=== PATIENT | female | born 1950 | race Caucasian/White ===

== ENCOUNTER 2019-06-27 08:34 | Outpatient (CLI) | payer MEDICARE, MEDICAID, SELFPAY ==
[2019-06-27 09:27] LABS: Albumin Level 3.9 g/dL (3.5-5.2); Anion Gap 17.7 (5-19); Blood Urea Nitrogen 28 mg/dL (8-23); Calcium 10.2 mg/dL (8.5-10.5); Carbon Dioxide 24 mmol/L (22-29); Chloride 102 mmol/L (98-107); Glucose 325 mg/dL (65-115); Phosphorus 3.5 mg/dL (2.5-4.5); Potassium 4.7 mmol/L (3.5-5.1); Sodium 139 mmol/L (136-145)
== END 2019-06-27 08:35 | disposition home or self-care (01) ==
LOC: LAB 08:42
PROVIDERS: Family Provider Family Medicine; PCP Family Medicine; Visit Provider Internal Medicine Nephrology
DX: N18.3 Chronic kidney disease, stage 3 (moderate) (principal)
CPT/HCPCS: 36415; 80069

== ENCOUNTER 2019-07-14 08:19 | Outpatient (CLI) | payer MEDICARE, MEDICAID, SELFPAY ==
--- NOTE | 2019-07-14 08:30 | US_ITS ---
WS: [id number] RENAL ULTRASOUND HISTORY: CHRONIC KIDNEY DZ-STAGE 3/HYPERURICEMIA COMPARISON: 12/20/2015 TECHNIQUE: 2-D and color Doppler imaging of the kidney submitted. Right kidney: 11.4 cm x 4.6 cm x 5.1 cm. Normal size and echogenicity. Minimal thinning of the cortex. No hydronephrosis or mass. Left kidney: 10.1 cm x 5.1 cm x 6.2 cm. Mild cortical thinning and increased renal sinus fat. There is a very tiny cortical cyst in the infer ior kidney. Aorta: Normal. Urinary Bladder: Normal distention. US/US renal BI* [id number] IMPRESSION: 1. Very mild cortical atrophy. No obstruction. 2. No solid mass.
== END 2019-07-14 08:20 | disposition home or self-care (01) ==
LOC: US 08:21
PROVIDERS: PCP Family Medicine; Visit Provider Internal Medicine Nephrology
DX: E79.0 Hyperuricemia without signs of inflammatory arthritis and tophaceous disease (principal); N18.3 Chronic kidney disease, stage 3 (moderate); N26.1 Atrophy of kidney (terminal)
CPT/HCPCS: 76770

== ENCOUNTER 2019-08-04 13:19 | Outpatient (CLI) | payer MEDICARE, MEDICAID, SELFPAY ==
--- NOTE | 2019-08-04 15:15 | XR_ITS ---
WS: [id number] Bone mineral density performed on a [employer], 08/04/2019 Clinical data: DEXA Findings: The first 4 lumbar vertebral bodies demonstrated the bone mineral density of 1.108 g/cm2 for a young adult T score of -0.6. Measurement of the left hip reveals a bone mineral density of 0.989 g/cm2 with a young adult T score of -0.2. Measurement of the right hip reveals the bone mineral density of 0.937 g/cm2 for young adult T score of -0.6. XR/XR DEXA axial skeleton* [id number] Impression: Normal bone mineral density of the lumbar spine and both hips.
== END 2019-08-04 13:20 | disposition home or self-care (01) ==
LOC: RADWPI 13:22
PROVIDERS: PCP Family Medicine; Visit Provider Family Medicine
DX: Z78.0 Asymptomatic menopausal state (principal)
CPT/HCPCS: 77080

== ENCOUNTER → 2019-09-15 14:11 | Outpatient (BNVA) | payer MEDICARE, MEDICAID, SELFPAY | PROVIDERS: PCP Family Medicine; Visit Provider Family Medicine | DX: E11.9 Type 2 diabetes mellitus without complications (principal); I10 Essential (primary) hypertension; E11.21 Type 2 diabetes mellitus with diabetic nephropathy; Z79.4 Long term (current) use of insulin; E55.9 Vitamin D deficiency, unspecified; G25.0 Essential tremor; M79.7 Fibromyalgia | CPT/HCPCS: 80053; 80061; 82044; 82306; 83036; 85025 ==

== ENCOUNTER → 2019-12-29 11:13 | Outpatient (BNVA) | payer MEDICARE, MEDICAID, SELFPAY | PROVIDERS: PCP Family Medicine; Visit Provider Family Medicine | DX: E11.22 Type 2 diabetes mellitus with diabetic chronic kidney disease (principal); N18.3 Chronic kidney disease, stage 3 (moderate) | CPT/HCPCS: 80069; 82043; 82306; 82310; 83970; 84550; 85025 ==

== ENCOUNTER → 2020-02-02 08:48 | Outpatient (BNVA) | payer MEDICARE, MEDICAID, SELFPAY | PROVIDERS: PCP Family Medicine; Visit Provider Family Medicine | DX: E11.21 Type 2 diabetes mellitus with diabetic nephropathy (principal); Z79.4 Long term (current) use of insulin | CPT/HCPCS: 80053; 83036 ==

== ENCOUNTER → 2020-02-20 08:45 | Outpatient (BNVA) | payer MEDICARE, MEDICAID, SELFPAY | PROVIDERS: PCP Family Medicine; Visit Provider Family Medicine | DX: E87.5 Hyperkalemia (principal) | CPT/HCPCS: 80048 ==

== ENCOUNTER → 2020-06-21 09:50 | Outpatient (BNVA) | payer MEDICARE, MEDICAID, SELFPAY | PROVIDERS: PCP Family Medicine; Visit Provider Family Medicine | DX: E11.21 Type 2 diabetes mellitus with diabetic nephropathy (principal); Z79.4 Long term (current) use of insulin; E78.5 Hyperlipidemia, unspecified | CPT/HCPCS: 80053; 80061; 83036; 83721 ==

== ENCOUNTER → 2020-08-01 13:10 | Outpatient (BNVA) | payer MEDICARE, MEDICAID, SELFPAY | PROVIDERS: PCP Family Medicine; Visit Provider Family Medicine | DX: E11.21 Type 2 diabetes mellitus with diabetic nephropathy (principal); Z79.4 Long term (current) use of insulin; J30.2 Other seasonal allergic rhinitis; E78.1 Pure hyperglyceridemia; E87.5 Hyperkalemia; E11.22 Type 2 diabetes mellitus with diabetic chronic kidney disease; Z68.35 Body mass index [BMI] 35.0-35.9, adult | CPT/HCPCS: 80053 ==

== ENCOUNTER → 2020-09-25 08:48 | Outpatient (BNVA) | payer MEDICARE, MEDICAID, SELFPAY | PROVIDERS: PCP Family Medicine; Visit Provider Family Medicine | DX: E11.21 Type 2 diabetes mellitus with diabetic nephropathy (principal); M79.7 Fibromyalgia; Z68.36 Body mass index [BMI] 36.0-36.9, adult; F17.211 Nicotine dependence, cigarettes, in remission; Z79.4 Long term (current) use of insulin | CPT/HCPCS: 80053; 82043; 83036; 85025 ==

== ENCOUNTER → 2020-09-26 10:16 | Outpatient (BNVA) | payer MEDICARE, MEDICAID, SELFPAY | PROVIDERS: PCP Family Medicine; Visit Provider Family Medicine | DX: E11.21 Type 2 diabetes mellitus with diabetic nephropathy (principal); Z79.4 Long term (current) use of insulin; M79.7 Fibromyalgia; D64.9 Anemia, unspecified; Z68.36 Body mass index [BMI] 36.0-36.9, adult | CPT/HCPCS: 82728; 83550 ==

== ENCOUNTER → 2020-12-25 09:34 | Outpatient (BNVA) | payer MEDICARE, MEDICAID, SELFPAY | PROVIDERS: PCP Family Medicine; Visit Provider Family Medicine | DX: E11.21 Type 2 diabetes mellitus with diabetic nephropathy (principal); Z79.4 Long term (current) use of insulin; E78.5 Hyperlipidemia, unspecified; M79.7 Fibromyalgia; E11.22 Type 2 diabetes mellitus with diabetic chronic kidney disease; M19.041 Primary osteoarthritis, right hand; M19.042 Primary osteoarthritis, left hand; N18.30 Chronic kidney disease, stage 3 unspecified | CPT/HCPCS: 80053; 83036 ==

== ENCOUNTER 2021-01-25 07:46 | Outpatient (CLI) | payer MEDICARE, MEDICAID, SELFPAY ==
--- NOTE | 2021-01-25 08:45 | USCV_ITS ---
April Huffman Age: 70 Gender: F : 1950 Exam Date: 01/25/2021 08:10 Ordering Phys: Clarissa Lopez MD ([email or web address]) Technologist: Elyssa Okeefe Exam Location: [facility] [place] Indication: MR BP: 137 / 70 HR: 64 Rhythm: Sinus Technical Quality: Adequate MEASUREMENTS (Male / Female) Normal Values 2D ECHO LV Diastolic Diameter PLAX 5.2 cm 4.2 - 5.9 / 3.9 - 5.3 cm LV Systolic Diameter PLAX 2.6 cm LV Chamber Size 3.2 cm IVS Diastolic Thickness 1.2 cm 0.6 - 1.0 / 0.6 - 0.9 cm IVS Systolic Thickness 1.5 cm LVPW Diastolic Thickness 1.4 cm 0.6 - 1.0 / 0.6 - 0.9 cm LVPW Systolic Thickness 1.6 cm RV Chamber Size 3.1 cm LVOT Diameter 2.0 cm LV Ejection Fraction 2D Teich 81.0 % LV Ejection Fraction MOD 2C 74.9 % LV Ejection Fraction 2C AL 76.7 % LA Diameter 4.3 cm LA Width 3.5 cm LA Height 4.3 cm RA Width 2.8 cm RA Height 4.5 cm Aorta at Sinotubular Diameter 2.5 cm M-MODE LV Diastolic Diameter MM 5.5 cm 4.2 - 5.9 / 3.9 - 5.3 cm LV Systolic Diameter MM 3.4 cm LV Ejection Fraction MM Teich 68.2 % IVS Diastolic Thickness MM 1.1 cm 0.6 - 1.0 / 0.6 - 0.9 cm IVS Systolic Thickness MM 1.5 cm LVPW Diastolic Thickness MM 1.5 cm 0.6 - 1.0 / 0.6 - 0.9 cm LVPW Systolic Thickness MM 2.3 cm Aortic Annulus Diameter 2.9 cm LA Ao Ratio MM 1.9 MV E Point Septal Separation 0.8 cm DOPPLER LVOT Peak Velocity 108.0 cm/s MV Peak Velocity 94.0 cm/s MV Area PHT 2.3 cm squared Mitral E to A Ratio 0.8 MV E' Velocity 48.6 cm/s Mitral E to MV E' Ratio 12.8 Mitral E to LV E' Lateral Ratio 13.0 Mitral E to LV E' Septal Ratio 12.6 TR Peak Velocity 155.1 cm/s TR Peak Gradient 9.6 mmHg TR Mean Velocity 90.4 cm/s TR Mean Gradient 4.3 mmHg TR Velocity Time Integral 33.6 cm TV Peak E Velocity 60.0 cm/s Right Atrial Pressure 3.0 mmHg Pulmonary Artery Systolic Pressu 12.6 mmHg PV Peak Velocity 108.0 cm/s FINDINGS Left Ventricle Normal left ventricular size and systolic function, EF 61 %. Mild left ventricular hypertrophy. No regional wall motion abnormalities. Grade I/IV diastolic dysfunction (abnormal relaxation filling pattern), normal to mildly elevated filling pressures. Right Ventricle The right ventricle is normal in size and function. Right Atrium The right atrium is normal in size. Left Atrium Mildly increased left atrial size. Mitral Valve Trace mitral valve regurgitation. Aortic Valve Thickened aortic valve. Tricuspid Valve Trace tricuspid valve regurgitation. Pulmonic Valve No gross abnormalities noted Pericardium Normal pericardium without effusion. Aorta Normal ascending aorta dimension. CONCLUSIONS Normal left ventricular size and systolic function, EF 61 %. Mild left ventricular hypertrophy. No regional wall motion abnormalities. Grade I/IV diastolic dysfunction (abnormal relaxation filling pattern), normal to mildly elevated filling pressures. Mildly increased left atrial size. Thickened aortic valve. Trace of mitral and tricuspid regurgitation There is no pericardial effusion. There are no intracardiac masses. No previous study is available for comparison. Compared to the study from 04/18/2015, there is significant improvement in the mitral regurgitation Dr Clarissa Lopez MD [facility] (Electronically Signed) Final Date: 25 January 2021 14:47 S
== END 2021-01-25 07:47 | disposition home or self-care (01) ==
PROVIDERS: PCP Family Medicine; Visit Provider Internal Medicine Cardiovascular Disease
DX: I08.3 Combined rheumatic disorders of mitral, aortic and tricuspid valves (principal)
CPT/HCPCS: 93306

== ENCOUNTER → 2021-03-25 14:08 | Outpatient (BNVA) | payer MEDICARE, MEDICAID, SELFPAY | PROVIDERS: PCP Family Medicine; Visit Provider Family Medicine | DX: E11.21 Type 2 diabetes mellitus with diabetic nephropathy (principal); Z79.4 Long term (current) use of insulin | CPT/HCPCS: 80053; 83036 ==

== ENCOUNTER → 2021-06-24 13:14 | Outpatient (BNVA) | payer MEDICARE, MEDICAID, SELFPAY | PROVIDERS: PCP Family Medicine; Visit Provider Family Medicine | DX: I10 Essential (primary) hypertension (principal); E78.5 Hyperlipidemia, unspecified; E11.21 Type 2 diabetes mellitus with diabetic nephropathy; Z79.4 Long term (current) use of insulin | CPT/HCPCS: 80053; 80061; 83036; 83721; 85025 ==

== ENCOUNTER → 2021-07-24 08:06 | Outpatient (BNVA) | payer MEDICARE, MEDICAID, SELFPAY | PROVIDERS: PCP Family Medicine; Visit Provider Internal Medicine Nephrology | DX: E11.22 Type 2 diabetes mellitus with diabetic chronic kidney disease (principal); N18.30 Chronic kidney disease, stage 3 unspecified | CPT/HCPCS: 80069; 82043; 82310; 83970; 85025 ==

== ENCOUNTER → 2021-10-03 10:34 | Outpatient (BNVA) | payer MEDICARE, MEDICAID, SELFPAY | PROVIDERS: PCP Family Medicine; Visit Provider Family Medicine | DX: E78.5 Hyperlipidemia, unspecified (principal); I10 Essential (primary) hypertension; E11.21 Type 2 diabetes mellitus with diabetic nephropathy; Z79.4 Long term (current) use of insulin; M79.641 Pain in right hand; M79.642 Pain in left hand; E11.22 Type 2 diabetes mellitus with diabetic chronic kidney disease; K21.9 Gastro-esophageal reflux disease without esophagitis; L91.8 Other hypertrophic disorders of the skin | CPT/HCPCS: 80053; 83036; 85025; 85651; 86038; 86140; 86200; 86431 ==

== ENCOUNTER → 2022-01-24 13:35 | Outpatient (BNVA) | payer MEDICARE, MEDICAID, SELFPAY | PROVIDERS: PCP Family Medicine; Visit Provider Family Medicine | DX: E11.21 Type 2 diabetes mellitus with diabetic nephropathy (principal); Z79.4 Long term (current) use of insulin; M79.7 Fibromyalgia | CPT/HCPCS: 80048; 83036 ==

== ENCOUNTER → 2022-02-25 08:29 | Outpatient (BNVA) | payer MEDICARE, MEDICAID, SELFPAY | PROVIDERS: PCP Family Medicine; Referring Provider Family Medicine; Visit Provider Internal Medicine | DX: E11.22 Type 2 diabetes mellitus with diabetic chronic kidney disease (principal); E11.21 Type 2 diabetes mellitus with diabetic nephropathy; E78.1 Pure hyperglyceridemia; Z79.4 Long term (current) use of insulin; Z87.891 Personal history of nicotine dependence; Z79.84 Long term (current) use of oral hypoglycemic drugs | CPT/HCPCS: 99204 ==

== ENCOUNTER → 2022-04-28 09:44 | Outpatient (BNVA) | payer MEDICARE, MEDICAID, SELFPAY | PROVIDERS: PCP Family Medicine; Visit Provider Family Medicine | DX: E11.21 Type 2 diabetes mellitus with diabetic nephropathy (principal); Z79.4 Long term (current) use of insulin; M19.041 Primary osteoarthritis, right hand; M19.042 Primary osteoarthritis, left hand; E11.22 Type 2 diabetes mellitus with diabetic chronic kidney disease; E11.9 Type 2 diabetes mellitus without complications; E78.1 Pure hyperglyceridemia | CPT/HCPCS: 80053; 80061; 83036; 83721 ==

== ENCOUNTER → 2022-05-29 09:56 | Outpatient (BNVA) | payer MEDICARE, MEDICAID, SELFPAY | PROVIDERS: PCP Family Medicine; Visit Provider Internal Medicine | DX: E11.21 Type 2 diabetes mellitus with diabetic nephropathy (principal); E78.1 Pure hyperglyceridemia; Z79.4 Long term (current) use of insulin | CPT/HCPCS: 99214 ==

== ENCOUNTER → 2022-06-24 13:44 | Outpatient (BNVA) | payer MEDICARE, MEDICAID, SELFPAY | PROVIDERS: PCP Family Medicine; Visit Provider Registered Nurse | DX: N18.32 Chronic kidney disease, stage 3b (principal) | CPT/HCPCS: 80069; 82043; 82310; 83970; 85025 ==

== ENCOUNTER → 2022-08-25 09:12 | Outpatient (BNVA) | payer MEDICARE, MEDICAID, SELFPAY | PROVIDERS: PCP Family Medicine; Visit Provider Family Medicine | DX: E78.1 Pure hyperglyceridemia (principal); I12.9 Hypertensive chronic kidney disease with stage 1 through stage 4 chronic kidney disease, or unspecified chronic kidney disease; E11.22 Type 2 diabetes mellitus with diabetic chronic kidney disease; N18.30 Chronic kidney disease, stage 3 unspecified; Z79.4 Long term (current) use of insulin | CPT/HCPCS: 80053; 80061; 83036; 83721 ==

== ENCOUNTER → 2022-09-04 07:49 | Outpatient (BNVA) | payer MEDICARE, MEDICAID, SELFPAY | PROVIDERS: PCP Family Medicine; Visit Provider Internal Medicine | DX: E11.21 Type 2 diabetes mellitus with diabetic nephropathy (principal); E78.1 Pure hyperglyceridemia; Z79.4 Long term (current) use of insulin | CPT/HCPCS: 99214 ==

== ENCOUNTER → 2022-10-28 08:39 | Outpatient (BNVA) | payer MEDICARE, MEDICAID, SELFPAY | PROVIDERS: PCP Family Medicine; Visit Provider Nurse Practitioner Family | DX: I12.9 Hypertensive chronic kidney disease with stage 1 through stage 4 chronic kidney disease, or unspecified chronic kidney disease (principal); E11.22 Type 2 diabetes mellitus with diabetic chronic kidney disease; N18.30 Chronic kidney disease, stage 3 unspecified; Z87.891 Personal history of nicotine dependence; Z79.4 Long term (current) use of insulin | CPT/HCPCS: 99213 ==

== ENCOUNTER → 2022-11-25 13:15 | Outpatient (BNVA) | payer MEDICARE, MEDICAID, SELFPAY | PROVIDERS: PCP Family Medicine; Visit Provider Family Medicine | DX: Z01.419 Encounter for gynecological examination (general) (routine) without abnormal findings (principal); E78.1 Pure hyperglyceridemia; E78.5 Hyperlipidemia, unspecified; M79.7 Fibromyalgia; R10.2 Pelvic and perineal pain; Z12.31 Encounter for screening mammogram for malignant neoplasm of breast; M10.9 Gout, unspecified | CPT/HCPCS: 87070; 87205 ==

== ENCOUNTER 2022-12-12 09:25 | Outpatient (CLI) | payer MEDICARE, MEDICAID, SELFPAY ==
--- NOTE | 2022-12-12 09:47 | MM_ITS ---
WS: [id number] BILATERAL SCREENING DIGITAL TOMOSYNTHESIS MAMMOGRAM WITH CAD HISTORY: screening mammogram COMPARISON: 06/25/2018 and 06/17/2016 Bilateral CC and MLO views with tomosynthesis and synthetic mammography submitted. Computer aided det ection analyzed. Breast composition: There are scattered areas of fibroglandular density. No suspicious masses, microc alcifications or architectural distortion. MM/[place] [id number] IMPRESSION: BI-RADS: 1-Negative FOLLOW UP: 1 Year Follow-up
--- NOTE | 2022-12-12 10:30 | US_ITS ---
WS: [id number] US transvaginal [id number] HISTORY: pelvic pain COMPARISON: None available. Status post hysterectomy. No midline mass identified. No uterine soft tissue. No mass at the vaginal cuff. Normal peristalsing loops of GI tract are noted within the pelvis. Neither ovary is identified. No adnexal mass. No free fluid. US/US transvaginal [id number] IMPRESSION: Status post hysterectomy. No pelvic masses or fluid.
== END 2022-12-12 09:26 | disposition home or self-care (01) ==
LOC: RAD 09:27 → MOBLMAM 10:06
PROVIDERS: PCP Family Medicine; Visit Provider Family Medicine
DX: Z12.31 Encounter for screening mammogram for malignant neoplasm of breast (principal); R10.2 Pelvic and perineal pain; Z90.710 Acquired absence of both cervix and uterus
CPT/HCPCS: 76830; 77063; 77067; 87070; 87205

== ENCOUNTER 2023-03-31 13:24 | Outpatient (CLI) | payer MEDICARE, MEDICAID, SELFPAY ==
--- NOTE | 2023-03-31 13:34 | XR_ITS ---
WS: [id number] Exam: XR shoulder LT min 2V* [id number] Date/Time of Exam: 03/31/2023 1:48 PM Reason For Exam: bilateral shoulder pain No fracture or dislocation. Degenerative change of the glenohumeral joint. Subacromial bone spurring. Osteophyte formation along the medial aspect of the humeral head. Normal soft tissues. IMPRESSION: 1. No fracture or dislocation. 2. Degenerative changes.
--- NOTE | 2023-03-31 13:34 | XR_ITS ---
WS: [id number] Exam: XR shoulder RT min 2V* [id number] Date/Time of Exam: 03/31/2023 1:48 PM Reason For Exam: bilateral shoulder pain No acute fracture or dislocation. Moderate DJD of the glenohumeral joint. Osteophyte formation along the medial aspect of the humeral head. Normal soft tissues. IMPRESSION: 1. Moderate degenerative change. No fracture or other significant finding.
== END 2023-03-31 13:25 | disposition home or self-care (01) ==
PROVIDERS: PCP Family Medicine; Visit Provider Family Medicine
DX: G89.29 Other chronic pain (principal); M25.511 Pain in right shoulder; M25.512 Pain in left shoulder; E11.9 Type 2 diabetes mellitus without complications; E78.1 Pure hyperglyceridemia; Z79.4 Long term (current) use of insulin
CPT/HCPCS: 73030; 80053; 80061; 82043; 83036; 83721

== ENCOUNTER → 2023-07-07 08:20 | Outpatient (BNVA) | payer MEDICARE, MEDICAID, SELFPAY | PROVIDERS: PCP Family Medicine; Visit Provider Family Medicine | DX: E11.21 Type 2 diabetes mellitus with diabetic nephropathy (principal); Z79.4 Long term (current) use of insulin; Z13.6 Encounter for screening for cardiovascular disorders | CPT/HCPCS: 80053; 83036; 85025 ==

== ENCOUNTER → 2023-09-09 08:22 | Outpatient (BNVA) | payer MEDICARE, MEDICAID, SELFPAY | PROVIDERS: PCP Family Medicine; Visit Provider Family Medicine | DX: E11.22 Type 2 diabetes mellitus with diabetic chronic kidney disease (principal); N18.30 Chronic kidney disease, stage 3 unspecified | CPT/HCPCS: 80069; 82043; 82542; 85025 ==

== ENCOUNTER → 2023-10-06 11:13 | Outpatient (BNVA) | payer MEDICARE, MEDICAID, SELFPAY | PROVIDERS: PCP Family Medicine; Visit Provider Family Medicine | DX: E11.21 Type 2 diabetes mellitus with diabetic nephropathy (principal); Z79.4 Long term (current) use of insulin; Z13.6 Encounter for screening for cardiovascular disorders | CPT/HCPCS: 80053; 83036 ==

== ENCOUNTER → 2023-10-27 09:41 | Outpatient (BNVA) | payer MEDICARE, MEDICAID, SELFPAY | PROVIDERS: PCP Family Medicine Adult Medicine; Visit Provider Internal Medicine Cardiovascular Disease | DX: I12.9 Hypertensive chronic kidney disease with stage 1 through stage 4 chronic kidney disease, or unspecified chronic kidney disease (principal); E11.22 Type 2 diabetes mellitus with diabetic chronic kidney disease; N18.30 Chronic kidney disease, stage 3 unspecified; E11.21 Type 2 diabetes mellitus with diabetic nephropathy; E78.5 Hyperlipidemia, unspecified; Z79.4 Long term (current) use of insulin; Z87.891 Personal history of nicotine dependence | CPT/HCPCS: 99213 ==

== ENCOUNTER → 2024-07-22 09:02 | Outpatient (BNVA) | payer MEDICARE, MEDICAID, SELFPAY | PROVIDERS: PCP Family Medicine; Visit Provider Family Medicine | DX: E11.21 Type 2 diabetes mellitus with diabetic nephropathy (principal); Z79.4 Long term (current) use of insulin | CPT/HCPCS: 80053; 80061; 82043; 83036; 83721; 85025 ==

== ENCOUNTER 2024-08-22 09:17 | Outpatient (CLI) | payer MEDICARE, MEDICAID, SELFPAY ==
--- NOTE | 2024-08-22 09:36 | XR_ITS ---
WS: [id number] Exam: XR knee RT 3V* [id number] Date/Time of Exam: 08/22/2024 9:40 AM Reason For Exam: acute right medial knee pain Comparison 12/01/2010 There is mild tricompartmental degenerative change. No fracture. Small effusion in the suprapatellar bursa. Normal soft tissues. XR/XR knee RT 3V* [id number] IMPRESSION: 1. Mild tricompartmental DJD and joint effusion. Kellgren-Gilson grade 1.
== END 2024-08-22 09:18 | disposition home or self-care (01) ==
LOC: RAD 09:29
PROVIDERS: PCP Family Medicine; Visit Provider Family Medicine
DX: M17.11 Unilateral primary osteoarthritis, right knee (principal); M25.461 Effusion, right knee
CPT/HCPCS: 73562

== ENCOUNTER → 2024-09-22 09:12 | Outpatient (BNVA) | payer MEDICARE, MEDICAID, SELFPAY | PROVIDERS: PCP Family Medicine; Visit Provider Family Medicine | DX: N18.31 Chronic kidney disease, stage 3a (principal); E55.9 Vitamin D deficiency, unspecified | CPT/HCPCS: 80069; 82310; 82570; 82652; 83970; 84156; 85025 ==

== ENCOUNTER → 2024-10-17 08:44 | Outpatient (BNVA) | payer MEDICARE, MEDICAID, SELFPAY | PROVIDERS: PCP Family Medicine; Visit Provider Family Medicine | DX: E11.21 Type 2 diabetes mellitus with diabetic nephropathy (principal); Z79.4 Long term (current) use of insulin; N18.31 Chronic kidney disease, stage 3a | CPT/HCPCS: 80053; 82570; 83036; 84156 ==

== ENCOUNTER → 2025-01-19 10:10 | Outpatient (BNVA) | payer MEDICARE, MEDICAID, SELFPAY | PROVIDERS: PCP Family Medicine; Visit Provider Family Medicine | DX: E11.21 Type 2 diabetes mellitus with diabetic nephropathy (principal); Z79.4 Long term (current) use of insulin | CPT/HCPCS: 80048; 83036 ==

== ENCOUNTER → 2025-01-27 10:46 | Outpatient (BNVA) | payer MEDICARE, MEDICAID, SELFPAY | PROVIDERS: PCP Family Medicine; Visit Provider Orthopaedic Surgery | DX: M19.011 Primary osteoarthritis, right shoulder (principal); M19.012 Primary osteoarthritis, left shoulder; M25.511 Pain in right shoulder; M25.512 Pain in left shoulder | CPT/HCPCS: 20610; 73030; 99204; J3301; J3490; J9999 ==

== ENCOUNTER → 2025-02-07 12:33 | Outpatient (BNVA) | payer MEDICARE, MEDICAID, SELFPAY | PROVIDERS: PCP Family Medicine; Visit Provider Orthopaedic Surgery | DX: M25.511 Pain in right shoulder (principal); M19.011 Primary osteoarthritis, right shoulder; M19.012 Primary osteoarthritis, left shoulder | CPT/HCPCS: 20610; 99213; J3301; J3490; J9999 ==

== ENCOUNTER → 2025-02-23 09:25 | Outpatient (BNVA) | payer MEDICARE, MEDICAID, SELFPAY | PROVIDERS: PCP Family Medicine; Visit Provider Family Medicine | DX: Z11.59 Encounter for screening for other viral diseases (principal); Z11.4 Encounter for screening for human immunodeficiency virus [HIV] | CPT/HCPCS: 86803; 87389 ==

== ENCOUNTER → 2025-04-20 09:40 | Outpatient (BNVA) | payer MEDICARE, MEDICAID, SELFPAY | PROVIDERS: PCP Family Medicine; Visit Provider Family Medicine | DX: E11.21 Type 2 diabetes mellitus with diabetic nephropathy (principal); Z79.4 Long term (current) use of insulin; Z13.6 Encounter for screening for cardiovascular disorders | CPT/HCPCS: 80053; 83036 ==

== ENCOUNTER 2025-04-27 19:40 | Emergency (ER) | payer MEDICARE, MEDICAID, SELFPAY ==
[2025-04-27 19:38] VITALS: BP 159/80; PULSE 51; RESP 20; TEMP 36.6; O2SAT 97
--- NOTE | 2025-04-27 19:44 | XRR_ITS ---
PROCEDURE INFORMATION: Exam: XR Right Shoulder Exam date and time: 04/27/2025 7:44 PM Age: 74 years old Clinical indication: Injury or trauma; Fall; Blunt trauma (contusions or hematomas); Shoulder; Right; Additional info: Fall, injury TECHNIQUE: Imaging protocol: Radiologic exam of the right shoulder. Views: 2 or more views. COMPARISON: CR XR shoulder RT min 2V* [id number] 01/27/2025 10:48 AM FINDINGS: Bones/joints: Demineralization consistent with the patient's age. Transverse fracture surgical neck right humerus with mild anterior displacement and impaction. Mildly displaced fracture of the greater tuberosity. Degenerative changes right glenohumeral joint. Right AC separation with 12 mm superior displacement of the acromion process with respect to the clavicle. Soft tissues: Normal. XR/XR shoulder RT min 2V* [id number] IMPRESSION: 1. Comminuted fracture right humeral head and surgical neck. 2. Right AC separation.
--- NOTE | 2025-04-27 19:44 | W.ED.FALL ---
HPI - Fall General: Chief Complaint: Fall Stated Complaint: Fall History of Present Illness: 74-year-old female, history HTN, DM, taking out the trash, and small trash, and fell directly on her right shoulder. She complains of pain in her right shoulder. She has no other complaints. She did not touch her head. She is not on anticoagulation. No blurry vision. No double vision. No other concerns. This occurred just prior to arrival. Associated symptoms-after fall: Denies abdominal pain, chest pain, headache(s) or neck pain Related Data Home Medications ?Medication ?Instructions ?Recorded ?Confirmed aspirin 81 mg tablet,delayed 81 mg PO QDAY 06/02/19 04/20/25 release (Adult Aspirin Regimen) blood-glucose meter #1 ea 06/02/19 04/20/25 torsemide 5 mg tablet 5 mg PO BID 07/19/19 04/20/25 cholecalciferol (vitamin D3) 50 50 mcg PO DAILY 02/02/20 04/20/25 mcg (2,000 unit) capsule cetirizine 10 mg tablet 10 mg PO DAILY PRN 11/27/20 04/20/25 Previous Rx's ?Medication ?Instructions ?Recorded lancets 30 gauge (OneTouch Delica #200 ea 08/01/20 Lancets) pen needle, diabetic 32 gauge x #10 ea 12/18/20 (ReliOn Pen [place]) blood sugar diagnostic #300 ea 07/04/21 omeprazole 20 mg capsule,delayed 20 mg PO BID #180 caps 05/02/22 release Pen needles #1 ea 05/26/23 olmesartan 40 mg tablet 40 mg PO DAILY 90 days #90 tabs 07/22/24 pen needle, diabetic 32 gauge x #100 ea 08/29/24 rosuvastatin 10 mg tablet See Rx Instructions .Route 11/30/24 .COMPLEX #90 tabs amlodipine 5 mg tablet See Rx Instructions .Route 12/12/24 .COMPLEX #90 tabs duloxetine 20 mg capsule,delayed 20 mg PO BID #180 caps 12/12/24 release dapagliflozin propanediol 10 mg 10 mg PO QAM 90 days #90 tabs 01/20/25 tablet (Farxiga) glipizide 5 mg tablet, extended 5 mg PO DAILY #90 tabs 01/20/25 release 24 hr insulin aspart 20 unit SUBCUT TID #15 mL 01/20/25 (niacinamide)(U-100) 100 unit/mL(3 mL) subcutaneous pen (Fiasp FlexTouch U-100 Insulin) linagliptin 5 mg tablet (Tradjenta) 5 mg PO DAILY 90 days #90 tabs 01/20/25 tramadol 50 mg tablet 50 mg PO Q6H PRN pain #28 tabs 02/01/25 allopurinol 100 mg tablet See Rx Instructions .Route 02/13/25 .COMPLEX #180 tabs fenofibrate nanocrystallized 145 See Rx Instructions .Route 03/10/25 mg tablet .COMPLEX #90 tabs propranolol 20 mg tablet See Rx Instructions .Route 03/15/25 .COMPLEX #180 tabs insulin degludec 200 unit/mL (3 See Rx Instructions .Route 03/20/25 mL) subcutaneous pen .COMPLEX #9 mL blood sugar diagnostic (OneTouch #100 ea 04/25/25 Ultra Test strips) ondansetron 4 mg disintegrating 4 mg PO Q8H PRN nausea and 04/27/25 tablet vomiting 4 days #14 tabs oxycodone 5 mg tablet 5 mg PO Q8H PRN pain (scale score 04/27/25 7-10) #15 tabs Allergies Allergy/AdvReac Type Severity Reaction Status Date / Time acetaminophen Allergy Severe Swollen Verified 04/20/25 09:05 liver Review of Systems General: Reports: 10 or more systems reviewed and unremarkable except in HPI and below Const: Denies: fever(s) or chills Card: Denies: chest pain or palpitations Resp: Denies: dyspnea, productive cough or non-productive cough GI: Denies: abdominal pain, nausea or vomiting : Denies: flank pain or difficulty voiding Musc: Denies: neck pain or back pain Neuro: Denies: headache(s) or numbness in extremities PFSH ED PFSH: Medical History (Updated 04/27/25 @ 21:55 by ALYSSA Yang) Dyslipidemia (high LDL; low HDL) Mitral regurgitation Benign essential HTN CKD stage 3 due to type 2 diabetes mellitus Osteoarthritis Chronic back pain GERD (gastroesophageal reflux disease) Neuropathy Vitamin D insufficiency Enrolled in chronic care management Type 2 diabetes mellitus with diabetic nephropathy, with long-term current use of insulin Surgical History Hx of arthroscopy of right knee H/O: hysterectomy History of cholecystectomy History of back surgery Family History Mother CAD (coronary artery disease) Dementia Stroke Sister Cancer Diabetes Lung disease Brother Cancer Denies family history of Clotting disorder Chronic kidney disease (CKD) Suicide Anesthesia complication Bleeding disorder Social History Smoking and tobacco/nicotine status: former use of tobacco/nicotine Second hand smoke exposure: Yes Alcohol intake: former Substance/Drug Use: never Adopted: No Caregiver/support person: No Lives independently: No Household members: spouse Housing: Apartment Female Reproductive History: Para: 5 Spontaneous abortions: Yes Physical Exam Const: COMMON NORMALS: patient oriented x3, alert and well nourished NUTRITIONAL APPEARANCE: obese HENMT: COMMON NORMALS: external ears normal and EAC's normal EXTERNAL EAR: Yes external ears normal EXTERNAL AUDITORY CANAL: EAC's normal Eye: COMMON NORMALS: EOMs intact bilaterally Neck/C-Spine: COMMON NORMALS: no lymphadenopathy Resp: COMMON NORMALS: normal respiratory effort, No retractions and clear to auscultation bilaterally AUSCULTATION: clear to auscultation bilaterally, no rales and no rhonchi Cardio: COMMON NORMALS: regular rate, regular rhythm, S1 normal heart sound present and S2 normal heart sound present RATE: regular rate RHYTHM: regular rhythm HEART SOUNDS: S1 normal heart sound present and S2 normal heart sound present GI: COMMON NORMALS: Normal to inspection, nondistended, normoactive bowel sounds present, Soft to palpation, non-tender and No hepatosplenomegaly present PALPATION: Yes Soft to palpation and Yes No hepatosplenomegaly present Extremity: COMMON NORMALS: capillary refill normal NARRATIVE EXTREMITY EXAM: Held in adduction. Sensation intact. Range of motion reduced due to pain. Ulnar and radial pulse present GENERAL: No clubbing, No cyanosis and No edema Neuro: COMMON NORMALS: patient oriented x3 SENSORIUM/ORIENTATION: Yes alert Course Vital Signs: Vital signs: Vital Signs Temperature 98 F 04/27/25 19:38 Pulse Rate 54 L 04/27/25 22:24 Respiratory Rate 16 04/27/25 22:24 Blood Pressure 170/64 04/27/25 22:24 Pulse Oximetry 97 04/27/25 22:24 Oxygen Delivery Me thod Room Air 04/27/25 20:32 MDM - Fall Medical Decision Making Patient is a pleasant 74-year-old female that fell when taking out the trash, with her hands full of trash, and fell directly on her right shoulder. She has a humeral head fracture. She was placed in a sling. The humeral head was in the glenohumeral joint after CT. Her pulses are present. She was referred to Dr. Schwartz for any additional concerns. She is to call tomorrow for appointment. Oxycodone was sent to the pharmacy. Patient was given hydrocodone here. Medical Records I reviewed the patient's medical records. Lab Data I reviewed the patient's lab results. 04/27/25 19:25 04/27/25 19:25 Radiology Impressions Shoulder X-Ray 04/27/25 19:44 IMPRESSION: 1. Comminuted fracture right humeral head and surgical neck. 2. Right AC separation. Shoulder CT 04/27/25 20:05 IMPRESSION: Comminuted fracture right humeral head and neck with angulation and displacement. Laboratory Results WBC 5.38 10^3/uL (3.29-11.43) 04/27/25 19: RBC 3.95 10^6/uL (3.85-5.65) 04/27/25 19:25 Hgb 12.00 g/dL (11.27-16.99) 04/27/25 19:25 Hct 36.2 % (36-47) 04/27/25: MCV 91.6 fl (85-98) 04/27/25 19:25 MCH 30.4 pg (27-33) 04/27/25 19: MCHC 33.1 g/dL (30-55) 04/27/25: RDW 14.5 % (12.1-15.1) 04/27/25:25 Plt Count 216 10^3/cmm (157-399) 04/27/25 19: MPV 10.8 fL (7.4-10.4) H 04/27/25 19: Neut % (Auto) 59.4 % 04/27/25: Lymph % (Auto) 26.8 % 04/27/25 19:25 [place] % (Auto) 8.9 % 04/27/25 19:25 Eos % (Auto) 2.8 % 04/27/25 19:25 Baso % (Auto) 0.6 % 04/27/25 19:25 Neut # (Auto) 3.20 10^3/uL (1.8-7.7) 04/27/25 19:25 Lymph # (Auto) 1.4 10^3/uL (0.8-4.8) 04/27/25 19:25 [place] # (Auto) 0.5 10^3/uL (0.2-0.9) 04/27/25 19:25 Eos # (Auto) 0.2 10^3/uL (0.0-0.8) 04/27/25 19: Baso # (Auto) 0.0 10^3/uL (0.0-0.1) 04/27/25 19:25 Nucleated RBC % (auto) 0 % 04/27/25:25 Nucleated RBCs # 0.0 /100WBC 04/27/25 19:25 Sodium 138 mmol/L (136-145) 04/27/25 19:25 Potassium 3.8 mmol/L (3.5-5.1) 04/27/25 19:25 Chloride 99 mmol/L (98-107) 04/27/25 19:25 Carbon Dioxide 24 mmol/L (22-29) 04/27/25 19:25 Anion Gap 18.8 (5-19) 04/27/25 19:25 BUN 26 mg/dL (8-23) H 04/27/25 19:25 Creatinine 1.4 mg/dL (0.5-0.9) H 04/27/25 19:25 GFR Calculation Not Reportable 04/27/25 19:25 Glucose 410 mg/dL (65-115) H 04/27/25 19:25 Calculated Osmolality 308 mOsm/kg (285-295) H 04/27/25 19:25 Calcium 9.4 mg/dL (8.5-10.5) 04/27/25 19:25 Total Bilirubin 0.4 mg/dL (0.15-1.2) 04/27/25 19:25 AST 16 U/L (0-32) 04/27/25 19:25 ALT 16 U/L (0-33) 04/27/25 19:25 Alkaline Phosphatase 61 U/L (35-105) 04/27/25 19:25 Total Protein 6.9 g/dL (6.6-8.7) 04/27/25 19:25 Albumin 3.9 g/dL (3.5-5.2) 04/27/25 19:25 Globulin 3.0 g/dL (1.3-4.6) 04/27/25 19:25 All radiology interpretation(s) finalized by discharge Discharge Plan Discharge Patient Disposition: Home Clinical Impression: Closed fracture of head of right humerus Qualifiers: Encounter type: initial encounter Qualified Code(s): S42.291A - Other displaced fracture of upper end of right humerus, initial encounter for closed fracture Condition: Stable Prescriptions: New ondansetron 4 mg tablet,disintegrating 4 mg PO Q8H PRN (Reason: nausea and vomiting) 4 Days Qty: 14 0RF oxycodone 5 mg tablet 5 mg PO Q8H PRN (Reason: pain (scale score 7-10)) Qty: 15 0RF No Action aspirin [Adult Aspirin Regimen] 81 mg tablet,delayed release (DR/EC) 81 mg PO QDAY (DME) blood-glucose meter Kit See Rx Instructions .ROUTE .MEDSUPPLY Qty: 1 Rx Instructions: As directed torsemide 5 mg tablet 5 mg PO BID (DME) lancets [OneTouch Delica Lancets] 30 gauge misc See Rx Instructions .ROUTE .MEDSUPPLY Qty: 200 3RF Rx Instructions: qid cetirizine 10 mg tablet 10 mg PO DAILY PRN cholecalciferol (vitamin D3) 50 mcg (2,000 unit) capsule 50 mcg PO DAILY olmesartan 40 mg tablet 40 mg PO DAILY 90 Days Qty: 90 3RF (DME) pen needle, diabetic [ReliOn Pen [place]] 32 gauge x 5/32 needle See Rx Instructions .ROUTE .MEDSUPPLY Qty: 10 11RF Rx Instructions: As directed (DME) OneTouch Ultra Blue Test Strip Strip See Rx Instructions .Route Qty: 300 3RF Rx Instructions: to use three times daily in onetouch meter 90 day supply omeprazole 20 mg capsule,delayed release(DR/EC) 20 mg PO BID Qty: 180 1RF (DME) Pen needles See Rx Instructions .Route .MEDSUPPLY Qty: 1 6RF Rx Instructions: Use 5 times a day with insulin injections (DME) pen needle, diabetic 32 gauge x /32 needle See Rx Instructions .ROUTE .COMPLEX Qty: 100 0RF Dose Instruction: USE 1 FIVE TIMES DAILY WITH INSULIN INJECTIONS Rx Instructions: USE 1 FIVE TIMES DAILY WITH INSULIN INJECTIONS rosuvastatin 10 mg tablet See Rx Instructions .ROUTE .COMPLEX Qty: 90 1RF Dose Instruction: TAKE 1 TABLET BY MOUTH EVERY DAY Rx Instructions: TAKE 1 TABLET BY MOUTH EVERY DAY amlodipine 5 mg tablet See Rx Instructions .ROUTE .COMPLEX Qty: 90 0RF Dose Instruction: Take 1 tablet by mouth once daily Rx Instructions: Take 1 tablet by mouth once daily duloxetine 20 mg capsule,delayed release(DR/EC) 20 mg PO BID Qty: 180 1RF glipizide 5 mg tablet extended release 24hr 5 mg PO DAILY Qty: 90 1RF Fiasp FlexTouch U-100 Insulin 100 unit/mL (3 mL) insulin pen 20 unit SUBCUT TID Qty: 15 4RF Rx Instructions: Per sliding scale not to exceed 20units Tradjenta 5 mg tablet 5 mg PO DAILY 90 Days Qty: 90 1RF dapagliflozin propanediol [Farxiga] 10 mg tablet 10 mg PO QAM 90 Days Qty: 90 1RF tramadol 50 mg tablet 50 mg PO Q6H PRN (Reason: pain) Qty: 28 1RF allopurinol 100 mg tablet See Rx Instructions .ROUTE .COMPLEX Qty: 180 0RF Dose Instruction: Take 2 tablets by mouth once daily Rx Instructions: Take 2 tablets by mouth once daily fenofibrate nanocrystallized 145 mg tablet See Rx Instructions .ROUTE .COMPLEX Qty: 90 0RF Dose Instruction: Take 1 tablet by mouth once daily Rx Instructions: Take 1 tablet by mouth once daily propranolol 20 mg tablet See Rx Instructions .ROUTE .COMPLEX Qty: 180 0RF Dose Instruction: Take 1 tablet by mouth twice daily Rx Instructions: Take 1 tablet by mouth twice daily insulin degludec 200 unit/mL (3 mL) insulin pen See Rx Instructions .ROUTE .COMPLEX Qty: 9 0RF Dose Instruction: INJECT 60 UNITS SUBCUTANEOUSLY TWICE DAILY Rx Instructions: INJECT 60 UNITS SUBCUTANEOUSLY TWICE DAILY (DME) OneTouch Ultra Test Strip See Rx Instructions .ROUTE .COMPLEX Qty: 100 0RF Dose Instruction: TEST BLOOD SUGAR THREE TIMES DAILY Rx Instructions: TEST BLOOD SUGAR THREE TIMES DAILY Discharge Orders: Discharge ED (Routine); Ordered 04/27/25 Ordered By: Cindi Miguel Referrals: Venkat Schwartz MD [Physician, Orthopedics] Charleen Perez DO [Primary Care Provider, Family Practice] Discharge Diet: Usual diet Discharge Activity: Limit activity as instructed Patient Instructions: Arm Fracture in Adults (ED), Patient Portal & [place] Instructions Activity Restrictions/Additional Instructions: - It is important to ice this area at the top of your shoulder - You should call to make an appoint with Dr. Schwartz-referral has been made - prescription for your narcotic is at the pharmacy. Even with your fatty liver, you can add Tylenol to this. The Zofran is at the pharmacy for nausea. Use sparingly. This causes constipation. Make sure you add a probiotic and stool softener to your daily regimen - Wear your sling at all times Thank you for choosing [facility] for your healthcare needs today. You have been screened and evaluated and felt safe for discharge. Health conditions do change or evolve sometimes and as such it is important that you follow up with your Primary Doctor to be re checked, 3-5 days is a general good time frame for follow up. You are always welcome to return to the ED for re assessment if your symptoms are worsening or you have new concerns Print Language: Moroccan Coding Level of Care Code ED Public Employment Mediator for Benja Adorno
--- NOTE | 2025-04-27 20:05 | CTR_ITS ---
PROCEDURE INFORMATION: Exam: CT Right Upper Extremity Without Contrast, Shoulder Exam date and time: 04/27/2025 8:34 PM Age: 74 years old Clinical indication: Injury or trauma; Fall; Blunt trauma (contusions or hematomas); Shoulder; Right; Additional info: Humeral head FX, assess for displacement TECHNIQUE: Imaging protocol: Computed tomography of the right upper extremity without contrast. Exam focused on the shoulder. Radiation optimization: All CT scans at this facility use at least one of these dose optimization techniques: automated exposure control; mA and/or kV adjustment per patient size (includes targeted exams where dose is matched to clinical indication); or iterative reconstruction. COMPARISON: CR (CHEST, ) 04/27/2025 7:44 PM RADIATION DOSE METRICS: Total DLP (mGy-cm): 473 FINDINGS: Bones/joints: Transverse fracture surgical neck right humerus with anterior and some superior displacement of the may distal fracture fragment. Slight medial displacement of the main distal fracture fragment. Also posterior angulation of the main distal fracture fragment. Nondisplaced fracture of the greater tuberosity. Other smaller fragments present. The humeral head seated within the glenoid cavity. Soft tissues: Increased soft tissue density in the area of the fracture probably hematoma. CT/CT shoulder RT wo con* [id number] IMPRESSION: Comminuted fracture right humeral head and neck with angulation and displacement.
[2025-04-27 20:20] LABS: Alanine Aminotransferase 16 U/L (0-33); Albumin Level 3.9 g/dL (3.5-5.2); Alkaline Phosphatase 61 U/L (35-105); Anion Gap 18.8 (5-19); Aspartate Amino Transferase 16 U/L (0-32); Blood Urea Nitrogen 26 mg/dL (8-23); Calcium 9.4 mg/dL (8.5-10.5); Carbon Dioxide 24 mmol/L (22-29); Chloride 99 mmol/L (98-107); Globulin 3.0 g/dL (1.3-4.6); Glucose 410 mg/dL (65-115); Osmolality Calculated 308 mOsm/kg (285-295); Potassium 3.8 mmol/L (3.5-5.1); Sodium 138 mmol/L (136-145); Total Protein 6.9 g/dL (6.6-8.7)
[2025-04-27 20:25] VITALS: RESP 18; O2SAT 97
[2025-04-27] MEDS: ondansetron 2 mg/ML SDV 2 mL 4 MG IVP (20:25)
[2025-04-27] MEDS: morphine 4 mg/mL SDV 1 mL IVP (20:25)
[2025-04-27 20:30] LABS: Hematocrit 36.2 % (36-47); Hemoglobin 12.00 g/dL (11.27-16.99); Mean Corpuscular HGB Conc 33.1 g/dL (30-55); Mean Corpuscular Hemoglobin 30.4 pg (27-33); Mean Corpuscular Volume 91.6 fl (85-98); Nucleated Red Blood Cells % 0 %; Platelet Count 216 10^3/cmm (157-399); Red Blood Count 3.95 10^6/uL (3.85-5.65); White Blood Count 5.38 10^3/uL (3.29-11.43)
[2025-04-27 20:32] VITALS: BP 139/76; PULSE 72; RESP 18; O2SAT 96
[2025-04-27] MEDS: HYDROcodone-acetaminophen 10-325 mg Tablet 2 TAB PO (22:19)
[2025-04-27] MEDS: ondansetron hcl ODT 4 mg Tab PO ×2 (22:20)
[2025-04-27 22:24] VITALS: BP 170/64; PULSE 54; RESP 16; O2SAT 97
--- NOTE | 2025-04-27 22:27 | PC.NURSE ---
HYDROCODONE AND ODT ZOFRAN DISPENSED BY PA FOR HOME ADMIN
== END 2025-04-27 22:27 | disposition home or self-care (01) ==
PROVIDERS: Emergency Provider Physician Assistant; PCP Family Medicine
DX: S42.291A Other displaced fracture of upper end of right humerus, initial encounter for closed fracture (principal); Z79.4 Long term (current) use of insulin; Z87.891 Personal history of nicotine dependence; E78.5 Hyperlipidemia, unspecified; E11.22 Type 2 diabetes mellitus with diabetic chronic kidney disease; I12.9 Hypertensive chronic kidney disease with stage 1 through stage 4 chronic kidney disease, or unspecified chronic kidney disease; N18.30 Chronic kidney disease, stage 3 unspecified; Z79.82 Long term (current) use of aspirin; W19.XXXA Unspecified fall, initial encounter
CPT/HCPCS: 73030; 73200; 80053; 85025; 96374; 96375; 99285; J2270; J2405; J9999; Q0162

== ENCOUNTER → 2025-05-01 15:02 | Outpatient (BNVA) | payer MEDICARE, MEDICAID, SELFPAY | PROVIDERS: PCP Family Medicine; Visit Provider Orthopaedic Surgery | DX: S42.291A Other displaced fracture of upper end of right humerus, initial encounter for closed fracture (principal); W01.0XXA Fall on same level from slipping, tripping and stumbling without subsequent striking against object, initial encounter | CPT/HCPCS: 99204 ==

== ENCOUNTER → 2025-05-15 08:59 | Outpatient (BNVA) | payer MEDICARE, MEDICAID, SELFPAY | PROVIDERS: PCP Family Medicine; Visit Provider Orthopaedic Surgery | DX: S42.201D Unspecified fracture of upper end of right humerus, subsequent encounter for fracture with routine healing (principal); X58.XXXD Exposure to other specified factors, subsequent encounter | CPT/HCPCS: 73030; 99213 ==